=== PATIENT | female | born 1950 | race Caucasian/White ===

== ENCOUNTER → 2019-09-16 | Outpatient (CLI) | payer MEDICARE, OTHER ==
--- NOTE | 2019-09-16 09:51 | Diagnostic Imaging Report ---
PROCEDURE: CT sinuses without contrast TECHNIQUE: Multiple contiguous axial images were obtained through the sinuses without the use of intravenous contrast. Coronal and sagittal reformations were then performed. Auto Exposure Controls were utilized during the CT exam to meet ALARA standards for radiation dose reduction. INDICATION: Rhinosinusitis. FINDINGS: There is mild leftward spurring of the nasal septum. The ostiomeatal complexes appear patent bilaterally. There is no paranasal sinus air/fluid level. Mild mural thickening is seen within the posterior aspect of the right maxillary sinus. No bone destruction is identified. The remaining paranasal sinuses are clear. There is extension of the mastoid air cells into the petrous ridges. The mastoid air cells appear to be clear. There are rather advanced degenerative findings in the temporomandibular joints with flattening of the left mandibular head and a subchondral cyst in the right mandibular head. IMPRESSION: Mild mural thickening within the dependent portion of the right maxillary sinus; otherwise, there is no evidence of acute sinusitis. 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 Dictated by: Dictated on workstation # [id number]
== END ==
LOC: RAD FS 09:08
PROVIDERS: ATTEND Nurse Practitioner Family
DX: J32.9 Chronic sinusitis, unspecified (principal); M26.623 Arthralgia of bilateral temporomandibular joint
CPT/HCPCS: 70486